=== PATIENT | male | born 1975 | race Caucasian/White ===

== ENCOUNTER → 2016-08-06 | Outpatient (CLI) | payer OTHER ==
[~2016-08-06] MED LIST: ACET-1256 PO; BENZ100C84 PO; BUPR100T8 PO; CPR500 PO; CYM60 PO; DULO60CA44 PO; ERGO500011 PO; FLX/5 PO; GABA-1218 PO; GABA1CAP4 PO; IBUP-1050 PO; LEVO-366 PO; LEVO1TAB33 PO; LEVO50TA6 PO; METH10TA4 PO; METH20TA66 PO; ONDA4TAB46 PO; OXYC-57 PO; RST15 PO; RTL20 PO; TEMA15CA4 PO; VNTHFA/IN INH
[2016-08-06 13:11] LABS: BASO % 0.1 %; BASO ABS # 0.01 K/uL (0-0.2); COMPLETE YES; EOS % 2.4 %; HEMATOCRIT 39.3 % (42-52); IG% 0.1 %; LYMPH % 18.1 %; LYMPH ABS # 1.43 K/uL (1.2-3.4); MEAN CELL VOLUME 76.6 fL (80-100); MEAN CORPUSCULAR HEMOGLOBIN 25.3 pg (25-34); MEAN CORPUSCULAR HGB CONC 33.1 g/dl (32-36); MEAN PLATELET VOLUME 9.4 fL (7.4-10.4); MONO % 5.1 %; NEUT % 74.2 %; PLATELET COUNT 274 K/uL (130-400); RED BLOOD COUNT 5.13 M/uL (4.7-6.1); WHITE BLOOD COUNT 7.88 K/uL (4.8-10.8)
== END | disposition home or self-care (01) ==
LOC: C.LAB1850 11:29
PROVIDERS: ATTEND Internal Medicine
DX: D64.9 Anemia, unspecified (principal); E55.9 Vitamin D deficiency, unspecified

== ENCOUNTER 2016-08-31 15:09 | Emergency (ER) | payer OTHER ==
[~2016-08-31 15:09] MED LIST changes: -ACET-1256 PO; -BENZ100C84 PO; -BUPR100T8 PO; -CYM60 PO; -ERGO500011 PO; -FLX/5 PO; -GABA-1218 PO; -GABA1CAP4 PO; +GABA300C19 PO; -LEVO-366 PO; -LEVO1TAB33 PO; -LEVO50TA6 PO; -METH20TA66 PO; -TEMA15CA4 PO; -VNTHFA/IN INH
[2016-08-31 15:27] VITALS: TEMP 37.1; Ht 190.5 cm
[2016-08-31] MEDS ORDERED: KETOROLAC TROMETHAMINE 30 MG/ML VIAL IV STA (16:40)
[2016-08-31] MEDS ORDERED: ACETAMINOPHEN 500 MG TAB PO STA (16:40)
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
[2016-08-31] MEDS ORDERED: OPTIRAY 320 IV PRN (16:45)
[2016-08-31 17:26] LABS: BASO % 0.1 %; BASO ABS # 0.01 K/uL (0-0.2); COMPLETE YES; EOS % 2.1 %; HEMATOCRIT 35.1 % (42-52); IG% 0.2 %; LYMPH % 19.9 %; LYMPH ABS # 1.76 K/uL (1.2-3.4); MEAN CORPUSCULAR HEMOGLOBIN 25.3 pg (25-34); MEAN CORPUSCULAR HGB CONC 33.3 g/dl (32-36); MONO % 6.4 %; NEUT % 71.3 %; PLATELET COUNT 203 K/uL (130-400); RED BLOOD COUNT 4.62 M/uL (4.7-6.1); WHITE BLOOD COUNT 8.84 K/uL (4.8-10.8)
--- NOTE | 2016-08-31 17:33 | DIAGNOSTIC IMAGING REPORT ---
CHEST ONE VIEW PORTABLE HISTORY: Pleuritic chest pain. COMPARISON: Chest 03/22/2016. FINDINGS: The heart remains mildly enlarged. No new focal lung consolidations to suggest pneumonia. No pleural effusions. No pneumothorax. Mild perihilar interstitial thickening. This could be technical due to the patient's body habitus. However, this remains unchanged. IMPRESSION: No significant change compared to the prior study. No acute process. Mild perihilar interstitial thickening is likely technical. Stable cardiomegaly. Electronically signed by: Raimundo Anton M.D. 08/31/2016 5:32 PM Dictated Date/Time: 08/31/2016 5:31 PM
[2016-08-31 17:35] LABS: PROTHROMBIN TIME (PATIENT) 10.7 SECONDS (9.0-12.0)
[2016-08-31 17:41] LABS: URINE APPEARANCE CLEAR (CLEAR); URINE BILIRUBIN NEG (NEG); URINE COLOR DK YELLOW; URINE NITRITE NEG (NEG); UROBILINOGEN NEG (NEG)
[2016-08-31 17:42] LABS: BLOOD UREA NITROGEN 14 mg/dl (7-18); GLUCOSE 110 mg/dl (70-99)
[2016-08-31 17:43] LABS: ALT/SGPT 21 U/L (12-78); BUN/CREATININE RATIO 11.5 (10-20); CALCIUM 8.5 mg/dl (8.5-10.1); CARBON DIOXIDE 27 mmol/L (21-32); CHLORIDE 103 mmol/L (98-107); POTASSIUM 3.4 mmol/L (3.5-5.1); SODIUM 140 mmol/L (136-145)
[2016-08-31 17:47] LABS: ALKALINE PHOSPHATASE 87 U/L (45-117); AST/SGOT 23 U/L (15-37)
[2016-08-31 17:57] LABS: MANUAL MICROSCOPIC REQUIRED? NO; REVIEW REQ? NO
--- NOTE | 2016-08-31 19:05 | DIAGNOSTIC IMAGING REPORT ---
BILATERAL LOWER EXTREMITY VENOUS DOPPLER HISTORY: Pleuritic chest pain. Shortness of breath. Assess for DVT. COMPARISON STUDY: Venous Doppler 06/10/2011. FINDINGS: There is normal compressibility, flow, and augmentation within the bilateral lower extremity deep venous systems. IMPRESSION: No DVT within the right or left lower extremity. Electronically signed by: Raimundo Anton M.D. 08/31/2016 7:03 PM Dictated Date/Time: 08/31/2016 7:03 PM
[2016-08-31 19:56] VITALS: BP 97/59; PULSE 93; O2SAT 97
--- NOTE | 2016-08-31 20:14 | DIAGNOSTIC IMAGING REPORT ---
CHEST CTA for PULMONARY ARTERIES CT DOSE: 945.46 mGy.cm HISTORY: Atypical chest pain. Short of breath. TECHNIQUE: Multiaxial CT images of the chest were performed following the intravenous administration of contrast to evaluate the pulmonary arteries. Maximal intensity projection images were also obtained. COMPARISON STUDY: Chest CTA 06/07/2015. FINDINGS: Normal caliber thoracic aorta with no evidence for dissection. The heart is normal in size. No pleural or pericardial effusions. The segmental and subsegmental pulmonary arteries are nondiagnostic due to suboptimal opacification and artifact from the patient's large body habitus. However, the main and lobar pulmonary arteries show no filling defects to suggest pulmonary embolus. Hepatic steatosis. The visualized spleen is unremarkable. No mediastinal or hilar lymphadenopathy. No fractures within the visualized osseous structures. The central airways are patent. No pneumothorax. Stable benign 3 mm nodule within the left upper lobe on image 81. No focal lung consolidations to suggest pneumonia. Stable 2 mm punctate nodule/calcified granuloma within the right lung apex on image 106. IMPRESSION: No evidence for central pulmonary embolus. Electronically signed by: Raimundo Anton M.D. 08/31/2016 8:12 PM Dictated Date/Time: 08/31/2016 8:06 PM
[2017-02-06] MEDS ORDERED: FLX/5 PO (17:10)
[2017-02-06] MEDS ORDERED: GABA1CAP4 PO (17:10)
[2017-02-06] MEDS ORDERED: CYM60 PO (17:10)
[2017-02-06] MEDS ORDERED: TEMA15CA4 PO (17:10)
[2017-02-06] MEDS ORDERED: METH20TA66 PO (17:10)
== END 2016-08-31 20:28 | disposition home or self-care (01) ==
LOC: C.EDB 15:10 → C.EDC 20:28
DX: R07.2 Precordial pain (principal); G62.9 Polyneuropathy, unspecified; G47.30 Sleep apnea, unspecified; Z87.81 Personal history of (healed) traumatic fracture; Z87.828 Personal history of other (healed) physical injury and trauma; Z86.19 Personal history of other infectious and parasitic diseases; Z87.442 Personal history of urinary calculi; Z98.890 Other specified postprocedural states; Z87.891 Personal history of nicotine dependence; Z79.899 Other long term (current) drug therapy; Z83.3 Family history of diabetes mellitus; Z80.9 Family history of malignant neoplasm, unspecified; Z83.79 Family history of other diseases of the digestive system; Z82.49 Family history of ischemic heart disease and other diseases of the circulatory system; Z84.1 Family history of disorders of kidney and ureter

== ENCOUNTER → 2016-09-28 | Outpatient (CLI) | payer OTHER ==
[~2016-09-28] MED LIST changes: +ACET-1256 PO; -CPR500 PO; +CYM60 PO; -DULO60CA44 PO; +ERGO1CAP41 PO; +FLX/5 PO; +GABA1CAP4 PO; -GABA300C19 PO; -IBUP-1050 PO; +LEVO50TA6 PO; -METH10TA4 PO; +METH20TA66 PO; -ONDA4TAB46 PO; -OXYC-57 PO; -RST15 PO; -RTL20 PO; +TEMA15CA4 PO
[2016-09-28 17:28] LABS: THYROID STIMULATING HORMONE 3.6 uIu/ml (0.300-4.500)
== END | disposition home or self-care (01) ==
LOC: C.RC 16:09
PROVIDERS: ATTEND Internal Medicine Pulmonary Disease
DX: G47.33 Obstructive sleep apnea (adult) (pediatric) (principal); E66.01 Morbid (severe) obesity due to excess calories

== ENCOUNTER → 2016-10-02 | Outpatient (CLI) | payer OTHER ==
--- NOTE | 2016-10-03 06:46 | SPLIT NIGHT TECHNICIAN REPORT ---
[facility] Split Night Polysomnogram - Nodulizer Report Study date: 10/02/2016 Referring Physician: Dr. Neves Name: TONJA GUNTER I Nodulizer: DANIELA Candelaria. Date of : 1975 Height: 41 years, Height 6' 4" Sex: Male Weight: 475 lbs Age: 41 Neck Circum: 23 inches BMI: Medications: 57.81 RITALIN 20 MG, CYCLOBENZAPRINE HCL 5 MG, GABAPENTIN 300 MG, TEMAZEPAM 15 MG, IBUPROFEN 600 MG, OXYCODONE-ACETAMINOPHEN 5/325 MG, DULOXETINE HCL 60 MG, VITAMIN D Patient History PATIENT HAD A SLEEP STUDY DONE IN 2014 AND WAS POSITIVE FOR JHONATAN WITH AN AHI OF 26.5/HR. HE WAS NOT SETUP WIT CPAP BUT HAS BEEN USING SUPPLEMNTAL OXYGEN. HE IS HERE TODAY FOR AN EVALUATION OF JHONATAN. ESS = 16 RM 4 Parameters Monitored NPSG: E1-M2, E2-M1, Fp1-M2, Fp2-M1, F3-M2, F4-M2, F4-M1, C3-M2, C4-M2, C4-M1, O1-M2, O2-M2, O2-M1, T3-M2, T4-M1, P3-M2, P4-M1, CHIN1, CHIN2, HR, EKG, Legs, PFLOW, SNOR, FLOW, CFLOW, Tidal Volume, THOR, ABDO, SpO2, PLTH, CPRESS, ETCO2 Wave, ETCO2, pH SLEEP SUMMARY DATA DIAGNOSTIC TREATMENT Lights Out: 10:01:08 PM 1:22:38 AM Lights On: 1:12:38 AM 5:37:38 AM Total Recording Time (TRT): 192.0 min. 255.5 min. Total Sleep Time (TST): 186.0 min. 215.0 min. NREM Time: 162.5 min. 105.0 min. REM Time: 23.5 min. 110.0 min. Sleep Period Time (SPT): 186.5 min. 254.0 min. Sleep Efficiency (SE): 97 % 84 % Sleep Latency: 5.0 min. 1.0 min. Arousal Index: 9.4 5.0 PAP Treatment Levels: 4, 5, 6, 7, 9, 11, 12, 13, 14, 15, 15/11, 16/12, 17/12 * Optimal Pressure(s) SLEEP STAGING DATA DIAGNOSTIC TREATMENT Duration (min) TST % Duration (min) TST % Stage Wake: 5.5 min. -- 40.5 min. -- WASO: 0.5 min. -- 39.0 min. -- NREM: 162.5 min. 87 % 105.0 min. 49 % Stage N1: 6.0 min. 3 % 9.0 min. 4 % Stage N2: 50.5 min. 27 % 53.5 min. 25 % Stage N3: 106.0 min. 57 % 42.5 min. 20 % REM: 23.5 min. 13 % 110.0 min. 51 % POSITIONAL DATA Event Count Index Event Count Index Supine: 71 22.9 103 28.7 Supine NREM: 30 11.1 37 21.1 Supine REM: 41 105 66 36 Non-Supine: N/A N/A N/A N/A Non-Supine NREM: N/A N/A N/A N/A Non-Supine REM: N/A N/A N/A N/A AROUSAL SUMMARY DATA: Event Count Index Event Count Index Apnea Arousals: 7 4.8 8 8.7 Hypopnea Arousals: 13 4.2 2 0.6 Snore Arousals: 4 1.3 4 1.1 PLM Arousals: 0 0.0 0 0.0 Non-Specific Arousals: 4 1.3 3 0.8 Total Arousals: 29 9.4 18 5.0 MYOCLONUS (PLM) Event Count Index Event Count Index PLM: 0 0.0 161 44.9 PLM AROUSAL: 0 0.0 0 0.0 PLM W/O AROUSAL 0 0.0 161 44.9 PLM W/RESP EVENT 0 0.0 3 0.0 MYOCLONUS (PLM) Event Count Index Event Count Index LM: 2 14.8 29 8.1 LM AROUSAL: 2 0.6 0 0.0 LM W/O AROUSAL LM W/RESP EVENT LM NON SPECIFIC 23 7.4 182 50.8 HEART RATE DATA DIAGNOSTIC TREATMENT Sleep (bpm): 91 82 REM (bpm): 83 91 NREM (bpm): 91 93 Tachycardia Count: 0 0 Tachycardia Duration: 0.00 0 Bradycardia Count: 0 0 Bradycardia Duration: 0.00 0 DIAGNOSTIC PORTION TREATMENT PORTION RESPIRATORY DATA Event Count Index Event Count Index AHI: -- 22.9 -- 28.7 RDI: -- 22.9 -- 29 Obstructive Apnea: 14 4.5 10 2.8 Central Apnea: 0 0.0 21 5.9 Mixed Apnea: 1 0.3 0 0.0 Hypopnea: 56 18.1 72 20.1 RERA: 1 0.3 0 0.0 Total Apneas: 15 4.8 31 8.7 RESPIRATORY DATA REM NREM SLEEP REM NREM SLEEP Supine Position: Obstructive Apneas: 14 0 14 8 2 10 Central Apneas: 0 0 0 5 16 21 Mixed Apneas: 1 0 1 0 0 0 Hypopneas: 26 30 56 53 19 72 RERA 0 1 1 0 0 0 Total Supine Events: 41 30 71 66 37 103 Supine AHI: 105 11.1 22.9 36 21.1 28.7 Supine RDI: 104.7 11.1 22.9 36.0 21.1 28.7 REM NREM SLEEP REM NREM SLEEP Non-Supine Position: Obstructive Apneas: N/A N/A N/A N/A N/A N/A Central Apneas: N/A N/A N/A N/A N/A N/A Mixed Apneas: N/A N/A N/A N/A N/A N/A Hypopneas: N/A N/A N/A N/A N/A N/A RERA N/A N/A N/A N/A N/A N/A Total Supine Events: N/A N/A N/A N/A N/A N/A Supine AHI: N/A N/A N/A N/A N/A N/A Supine RDI: N/A N/A N/A N/A N/A N/A OXYGEN DESTAURATION DATA: Event Count Index Event Count Index REM Desaturations: 43 109.8 75 40.9 NREM Desaturations: 34 12.6 43 24.6 SNORE DATA DIAGNOSTIC TREATMENT Snore Time: 31.8 1:23:38 AM Snore TST%: 9 3 Snore Arousal Count: 4 4 Snore Arousal Index: 1.3 1.1 Desaturation Event Summary: Minimum %SpO2 Event Count Mean/Min/Max Duration(sec.) Desaturation Index % Time In Bed > 90 177 26.7 / 6.8 / 69.1 31.8 76.2 86 - 90 35 20.4 / 6.0 / 46.8 30.4 15.8 81 - 85 36 12.8 / 5.3 / 27.3 112.5 4.4 76 - 80 12 15.4 / 7.3 / 26.8 73.0 2.3 71 - 75 3 12.3 / 10.5 / 14.0 40.5 1.0 66 - 70 0 N/A 0.0 0.4 61 - 65 0 N/A 0.0 0.0 56 - 60 0 N/A 0.0 0.0 51 - 55 0 N/A 0.0 0.0 < 50 0 N/A 0.0 0.0 OXYGEN SATURATION DATA DIAGNOSTIC TREATMENT SpO2 Mean Sleep: 90 % 92 % SpO2 Mean REM: 83 % 91 % SpO2 Mean NREM: 91 % 93 % SpO2 Minimum Sleep: 62 % 70 % SpO2 Minimum REM: 62 % 70 % SpO2 Minimum NREM: 73 % 76 % Time Below 90% (TST): 37.1 32.8 Time Below 88% (TST): 22.5 23.6 Total REM NREM Awake <50% 0.0 min. 0.0 min. 0.0 min. 0.0 min. 51 - 60% 0.0 min. 0.0 min. 0.0 min. 0.0 min. 61 - 70% 1.8 min. 1.8 min. 0.0 min. 0.0 min. 71 - 80% 14.3 min. 12.2 min. 1.5 min. 0.6 min. 81 - 90% 88.4 min. 35.2 min. 46.7 min. 6.4 min. 91 - 100% 333.7 min. 84.3 min. 219.2 min. 30.2 min. Average 91 90 92 94 Minimum SpO2 62 62 73 77 Desaturation Event Index 31.3 53.0 17.3 50.1 # Desat. Events below 89% 182 103 58 21 Time(%) with Saturation below 89% 13.6 8.8 3.9 1.0 Time(min.) with Saturation below 89% 59.8 38.4 17.0 4.4 Recording Nodulizer Comments: Mr. Gunter slept in the supine positions. Increased heart rate noted at times. Leg movements noted. No bruxism noted. Snoring was noted and scored as a 3 on a scale of 1 through 5. (0=no snoring, 5=snoring loud enough to be heard through a closed door or down the [address] way) At 1:12 am Mr. Gunter has met specific Split-Night criteria during the diagnostic portion of this study. CPAP was initiated at +4 CMH2O and up-titrated to a level of +15 CMH2O. At this time, I switched to BIPAP due to some central apneas noted and high mask pressure. BIPAP was started at 15/11 and up-titrated to 17/12 due to apneas and hypopneas. A Resmed Mirage Quattro full face size medium mask was used during titration Mr. Gunter awoke to use the restroom 1 time during the night. Mr. Gunter stated I slept as well as I do when I am in my own bed. I tried to have the mask tight enough so that it wouldn't cause problems later in the study but the patient wouldn't allow me to have as tight as I wanted it. The mask did come loose while the patient was in REM sleep at a critical time in the study. This may have caused the respiratory events due to mask leak. I did switch to BIPAP due to high mask leak and high pressure to try and relieve the respiratory events. The patient was unable to get back into a deeper sleep after the restroom break. The final report will be interpreted and signed by a sleep physician. The completed physician report will then be placed in the patient medical record. Therapy Event: Therapy (cm H20) 0 4 5 6 7 9 11 Total Time at Pressure (min.) 191.5 4.5 6.0 9.8 4.5 7.4 7.7 TST at Pressure (min.) 186.0 3.5 6.0 9.8 4.5 7.4 7.7 # Periods 1 1 1 1 1 1 1 Sleep Onset (min.) 5.0 1.0 0.0 0.0 0.0 0.0 0.0 REM Onset (min.) 83.5 N/A N/A 5.5 0.0 0.0 0.0 Sleep Efficiency % 97 78 100 100 100 100 100 Wakefulness (%) 2.9 22.0 0.0 0.0 0.0 0.0 0.0 Wakefulness (min.) 5.5 1.0 0.0 0.0 0.0 0.0 0.0 NREM 1 (%) 3.1 33.0 0.0 0.0 0.0 0.0 0.0 NREM 1 (min.) 6.0 1.5 0.0 0.0 0.0 0.0 0.0 NREM 2 (%) 26.4 45.0 100.0 55.8 0.0 0.0 0.0 NREM 2 (min.) 50.5 2.0 6.0 5.5 0.0 0.0 0.0 NREM 3 (%) 55.4 0.0 0.0 0.0 0.0 0.0 0.0 NREM 3 (min.) 106.0 0.0 0.0 0.0 0.0 0.0 0.0 REM (%) 12.3 0.0 0.0 44.2 100.0 100.0 100.0 REM (min.) 23.5 0.0 0.0 4.3 4.5 7.4 7.7 # Arousals 29 2 0 2 2 0 1 Arousal Index 9.4 33.9 0.0 12.2 26.9 0.0 7.8 # Snore 1,335 7 41 49 19 18 28 Snore Index 430.6 118.5 411.5 299.6 255.8 146.2 218.9 AHI 22.9 101.6 50.2 85.6 67.3 81.2 39.1 AHI Supine 22.9 101.6 50.2 85.6 67.3 81.2 39.1 AHI Non-Supine N/A N/A N/A N/A N/A N/A N/A NREM AHI 11.1 101.6 50.2 76.7 N/A N/A N/A REM AHI 104.7 N/A N/A 96.9 67.3 81.2 39.1 RDI 22.9 101.6 50.2 85.6 67.3 81.2 39.1 # Obstructive 14 0 0 4 1 0 0 # Central Ap 0 5 1 0 0 0 0 # Mixed 1 0 0 0 0 0 0 # Hypopneas 56 1 4 10 4 10 5 RERAS 1 0 0 0 0 0 0 Total Respiratory Events 71 6 5 14 5 10 5 Time Below SpO2 89.00% (min.) 27.3 0.8 0.6 4.6 3.5 7.3 3.5 Mean NREM SpO2 (%) 91 92 92 90 N/A N/A N/A Mean REM SpO2 (%) 83 N/A N/A 85 83 81 89 Mean Sleep SpO2 (%) 90 92 92 88 83 81 89 Min NREM SpO2 (%) 73 80 79 76 N/A N/A N/A Min REM SpO2 (%) 62 N/A N/A 73 70 73 81 Position Supine (min.) 186.0 3.5 6.0 9.8 4.5 7.4 7.7 Position Non-supine (min.) 0.0 0.0 0.0 0.0 0.0 0.0 0.0 LM Index Sleep 14.8 0.0 0.0 6.1 13.5 16.2 23.4 LM Index NREM 8.5 0.0 0.0 11.0 N/A N/A N/A LM Index REM 58.7 N/A N/A 0.0 13.5 16.2 23.4 Mean Heart Rate (bpm) 91 84 84 85 85 90 89 Min Heart Rate (bpm) 62 76 76 69 66 81 78 Therapy (cm H20) 12 13 14 15 15/11 16/12 17/12 Total Time at Pressure (min.) 18.2 35.8 89.3 6.3 7.0 5.8 52.8 TST at Pressure (min.) 18.2 35.8 89.3 6.3 7.0 5.8 13.8 # Periods 1 1 1 1 1 1 1 Sleep Onset (min.) 0.0 0.0 0.0 0.0 0.0 0.0 0.0 REM Onset (min.) 0.0 0.0 0.0 0.0 0.0 0.0 0.0 Sleep Efficiency % 100 100 100 100 100 100 26 Wakefulness (%) 0.0 0.0 0.0 0.0 0.0 0.0 73.9 Wakefulness (min.) 0.0 0.0 0.0 0.0 0.0 0.0 39.0 NREM 1 (%) 0.0 0.0 0.0 8.0 0.0 0.0 13.3 NREM 1 (min.) 0.0 0.0 0.0 0.5 0.0 0.0 7.0 NREM 2 (%) 0.0 0.0 44.8 0.0 0.0 0.0 0.0 NREM 2 (min.) 0.0 0.0 40.0 0.0 0.0 0.0 0.0 NREM 3 (%) 0.0 0.0 47.6 0.0 0.0 0.0 0.0 NREM 3 (min.) 0.0 0.0 42.5 0.0 0.0 0.0 0.0 REM (%) 100.0 100.0 7.6 92.0 100.0 100.0 12.8 REM (min.) 18.2 35.8 6.8 5.8 7.0 5.8 6.8 # Arousals 0 0 3 1 0 0 7 Arousal Index 0.0 0.0 2.0 9.6 0.0 0.0 30.5 # Snore 3 14 6 1 2 0 6 Snore Index 9.9 23.5 4.0 9.6 17.1 0.0 26.1 AHI 19.8 15.1 10.8 67.0 34.1 51.3 47.9 AHI Supine 19.8 15.1 10.8 67.0 34.1 51.3 47.9 AHI Non-Supine N/A N/A N/A N/A N/A N/A N/A NREM AHI N/A N/A 8.7 120.0 N/A N/A 51.4 REM AHI 19.8 15.1 35.4 62.4 34.1 51.3 44.3 RDI 19.8 15.1 10.8 67.0 34.1 51.3 47.9 # Obstructive 0 1 2 2 0 0 0 # Central Ap 0 2 7 2 0 0 4 # Mixed 0 0 0 0 0 0 0 # Hypopneas 6 6 7 3 4 5 7 RERAS 0 0 0 0 0 0 0 Total Respiratory Events 6 9 16 7 4 5 11 Time Below SpO2 89.00% (min.) 0.3 1.2 3.0 0.7 0.8 0.6 1.2 Mean NREM SpO2 (%) N/A N/A 93 88 N/A N/A 93 Mean REM SpO2 (%) 92 94 93 94 93 93 94 Mean Sleep SpO2 (%) 92 94 93 94 93 93 93 Min NREM SpO2 (%) N/A N/A 78 83 N/A N/A 83 Min REM SpO2 (%) 86 80 83 86 81 85 84 Position Supine (min.) 18.2 35.8 89.3 6.3 7.0 5.8 13.8 Position Non-supine (min.) 0.0 0.0 0.0 0.0 0.0 0.0 0.0 LM Index Sleep 6.6 13.4 112.2 9.6 17.1 20.5 4.4 LM Index NREM N/A N/A 121.5 0.0 N/A N/A 8.6 LM Index REM 6.6 13.4 0.0 10.4 17.1 20.5 0.0 Mean Heart Rate (bpm) 86 84 80 79 79 78 77 Min Heart Rate (bpm) 77 74 65 72 69 67 63
--- NOTE | 2016-10-07 13:33 | POLYSOMNOGRAPH REPORT ---
Sleep study report CLINICAL DATA: The patient is a 41-year-old male. He has a BMI which is severely elevated at 57.81. He was referred by Dr. Nilson Patricia. A split night study was performed. His history is that of snoring, observed apneas, disturbed nocturnal sleep, and excessive daytime somnolence. The patient had an Rio sleepiness scale score of 16 out of a possible 24. SLEEP ARCHITECTURE: During the diagnostic portion of the study, the patient had a total sleep period time of 186.5 minutes with a total sleep time of 186.0 minutes. Sleep efficiency was high at 97%. The sleep latency was 5 minutes. Sleep consisted of stage N1 3%, stage N2 27%, stage N3 57%, and stage, REM 13%. During the therapeutic portion of the study when the patient was treated with nasal CPAP and BiPAP, his sleep period time was 254.0 minutes. Total sleep time was 215 minutes. Sleep efficiency was 84%. The sleep latency was 1 minute. Sleep consisted of stage N1 4%, stage N2 25%, stage N3 20%, and stage REM 51%. AROUSAL DATA: During the diagnostic portion of the study, the patient had a total of 29 arousals including 7 apnea arousals, 13 hypopnea arousals, 4 snoring arousals, and 4 nonspecific arousals. The arousal index was 9.4 events per hour. During the therapeutic portion of the study, the patient had a total of 18 arousals including 8 apnea arousals, 2 hypopneas arousals, 4 snoring arousals, and 3 nonspecific arousals. The arousal index was 5.0. PLM DATA: During the diagnostic portion of the study, the patient had no periodic limb movements. During the therapeutic portion of the study, there were 161 periodic limb movements for a PLM index of 44.9 events per hour. There were no arousals associated with the limb movements. EKG: The underlying cardiac rhythm was normal sinus. The cardiac rates averaged 91 during the diagnostic portion of the study and 82 during the treatment portion. It was noted during the diagnostic portion that during REM sleep, he was having some variability in heart rates with some slowing of the heart rates during the events. There were no long pauses; however. RESPIRATORY DATA: During the diagnostic portion of the study, the patient had a total of 41 respiratory events including 14 obstructive apneas, 1 mixed apnea and 56 hypopneas. The apnea-hypopnea index was moderately elevated at 22.9 events per hour. Hypopneas were scored by the 4% rule. During the therapeutic portion of the study, the patient had a total of 10 obstructive apneas, 21 central apneas, 72 hypopneas, and an overall apnea-hypopnea index of 28.7 events per hour. OXIMETRY DATA: During the diagnostic portion of the study, the mean saturation was 90% with the lowest saturation of 62%. There were 22.5 minutes less than 88%. During the therapeutic portion of the study, the mean saturation was 92%. The minimum saturation was 70%. There was 23.6 minutes with saturations less than 88%. CODING TECHNICIAN'S COMMENT AND TREATMENT SUMMARY: The patient slept in the supine position. Leg movements were noted. No bruxism was noted. Snoring was noted and scored as a 3 on a scale of 1 through 5. The patient met specific split night criteria during the diagnostic portion of the study. CPAP was initiated at 4 cm and up titrated to a level of 15 cm. He was then switched to BiPAP due to having central apneas. He also was having high mask pressure. BiPAP was started at 15/11 and titrated up to 17/12. The patient persisted with events. The mass did come loose while the patient was in REM sleep and this may have caused respiratory events due to mask leak. The patient had a restroom break and was unable to get back into deeper sleep after the restroom break. IMPRESSION: 1. Obstructive sleep apnea - moderate. COMMENTS: The patient had moderate sleep apnea during the diagnostic portion of the study. During the therapeutic portion of the study, CPAP was initiated. His pressure was taken up to a high of 15 cm on CPAP. He was then switched to BiPAP because he was having some central apneas. He did not do well with BiPAP. He had relatively little sleep and the events seemed to worsen. His best CPAP pressure appeared to be 14 cm where he had an apnea-hypopnea index of 10.8. The patient did have marked REM rebound during the therapeutic portion of the study. He developed periodic limb movements during the therapeutic portion of the study. This is not unusual with the resolution of sleep-disordered breathing. The patient does take a number of medications which could affect both sleep and alertness including Ritalin, cyclobenzaprine, gabapentin, temazepam, oxycodone, and duloxetine. RECOMMENDATIONS: 1. In light of the difficult titration noted above, it is advised that the patient be started on auto CPAP with a minimum pressure of 8 and a maximum pressure of 20. 2. It is advised that he be ordered a ResMed Mirage Quattro full facemask, size medium. 3. The patient has a severe elevation of body mass index of 57.81. A weight reduction program is advised. 4. The patient spent the entire night in the supine position. If possible, it is advised that he avoid sleeping in the supine position. 5. The patient should be seen in followup between day 31 and day 90 after CPAP is started. GRISELDA
== END | disposition home or self-care (01) ==
LOC: C.NEUR 21:00
PROVIDERS: ATTEND Internal Medicine Pulmonary Disease
DX: G47.33 Obstructive sleep apnea (adult) (pediatric) (principal)

== ENCOUNTER → 2017-01-24 | Outpatient (CLI) | payer OTHER ==
[~2017-01-24] MED LIST changes: +BENZ100C84 PO; +BUPR100T8 PO; -ERGO1CAP41 PO; +ERGO500011 PO; +LEVO-366 PO; +LEVO1TAB33 PO; +VNTHFA/IN INH
[2017-01-24 11:41] LABS: BASO % 0.3 %; BASO ABS # 0.02 K/uL (0-0.2); COMPLETE YES; EOS % 3.4 %; HEMATOCRIT 39.6 % (42-52); IG% 0.2 %; LYMPH % 20.6 %; LYMPH ABS # 1.35 K/uL (1.2-3.4); MEAN CELL VOLUME 77.3 fL (80-100); MEAN CORPUSCULAR HEMOGLOBIN 25.6 pg (25-34); MEAN CORPUSCULAR HGB CONC 33.1 g/dl (32-36); MONO % 7.3 %; NEUT % 68.2 %; PLATELET COUNT 228 K/uL (130-400); RED BLOOD COUNT 5.12 M/uL (4.7-6.1); WHITE BLOOD COUNT 6.54 K/uL (4.8-10.8)
[2017-01-24 12:18] LABS: ALT/SGPT 27 U/L (12-78); BLOOD UREA NITROGEN 13 mg/dl (7-18); BUN/CREATININE RATIO 12.2 (10-20); CALCIUM 9.2 mg/dl (8.5-10.1); CARBON DIOXIDE 29 mmol/L (21-32); CHLORIDE 103 mmol/L (98-107); GLUCOSE 92 mg/dl (70-99); POTASSIUM 4.2 mmol/L (3.5-5.1); SODIUM 139 mmol/L (136-145)
[2017-01-24 12:27] LABS: ALB/GLOB RATIO 0.8 (0.9-2); ALKALINE PHOSPHATASE 89 U/L (45-117); AST/SGOT 18 U/L (15-37); FERRITIN 70.5 ng/ml (8.0-388.0)
== END | disposition home or self-care (01) ==
LOC: C.LAB1850 10:35
PROVIDERS: ATTEND Internal Medicine
DX: E55.9 Vitamin D deficiency, unspecified (principal); D64.9 Anemia, unspecified; N23 Unspecified renal colic; E03.9 Hypothyroidism, unspecified

== ENCOUNTER 2017-02-06 19:25 | Emergency (ER) | payer OTHER ==
[~2017-02-06] VITALS: Ht 193 cm; Wt 213.0 kg
[~2017-02-06 19:25] MED LIST changes: -ACET-1256 PO; -BENZ100C84 PO; -BUPR100T8 PO; -ERGO500011 PO; -LEVO-366 PO; -LEVO1TAB33 PO; -LEVO50TA6 PO; -VNTHFA/IN INH
[2017-02-06 19:27] VITALS: TEMP 37; Ht 193 cm; Wt 213.0 kg
[2017-02-06] MEDS ORDERED: LEVO50TA6 PO (19:39)
[2017-02-06] MEDS ORDERED: ERGO1CAP41 PO (19:39)
[2017-02-06] MEDS ORDERED: ACET-1256 PO (19:43)
[2017-02-06] MEDS ORDERED: IBUPROFEN 800 MG TAB PO STA (20:19)
--- NOTE | 2017-02-06 20:59 | DIAGNOSTIC IMAGING REPORT ---
RIGHT ANKLE MIN 3 VIEWS ROUTINE CLINICAL HISTORY: Ankle injury. COMPARISON: CT of the right ankle November 07, 2015. FINDINGS: There are post surgical findings consistent with a tibiotalar and subtalar joint effusion. Interval post surgical findings since exam of November 07, 2015 are noted. Several old screw fragments are present. There are soft tissue swelling. Sensitivity for detection of fractures is diminished on this exam but none are identified. Tibiotalar and subtalar joint fusion is incomplete. A metallic density projecting of the syndesmosis is unchanged. IMPRESSION: 1. Status post interval right tibiotalar and subtalar joint fusion. Fusion incomplete. 2. Old distal right tibial and fibular fractures. No acute fracture identified. 3. Diffuse soft tissue swelling. 4. Several old screw fragments from previous internal fixation. 5. Interval development of cortical irregularity and lucency within the distal shaft of the right fibula, a nonspecific finding. Electronically signed by: Toni Breen M.D. 02/06/2017 8:57 PM Dictated Date/Time: 02/06/2017 8:52 PM
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
[2017-02-06 23:03] VITALS: BP 141/86; PULSE 90; O2SAT 98
== END 2017-02-06 23:10 | disposition home or self-care (01) ==
LOC: C.EDB 19:26 → C.EDD 23:10
DX: S99.911A Unspecified injury of right ankle, initial encounter (principal); W22.8XXA Striking against or struck by other objects, initial encounter; G47.30 Sleep apnea, unspecified; Z79.899 Other long term (current) drug therapy

== ENCOUNTER 2017-02-10 12:25 | Emergency (ER) | payer OTHER ==
[~2017-02-10] VITALS: Ht 193 cm; Wt 215.0 kg
[~2017-02-10 12:25] MED LIST changes: +ACET-1256 PO; +ERGO1CAP41 PO; +LEVO50TA6 PO
[2017-02-10 12:27] VITALS: TEMP 36.8; Ht 193 cm; Wt 215.0 kg
[2017-02-10] MEDS ORDERED: SODIUM CHLORIDE 0.9% 1000ML 1,000 ML IV STA (13:23)
[2017-02-10] MEDS ORDERED: ONDANSETRON INJ 2 MG/ML 2 ML VIAL IV STA (13:23)
[2017-02-10] MEDS ORDERED: FENTANYL CITRATE INJ 50 MCG/1 ML 2 ML VIAL IV STA (13:23)
[2017-02-10] MEDS ORDERED: KETOROLAC TROMETHAMINE 30 MG/ML VIAL IV STA (13:23)
[2017-02-10 13:29] LABS: BASO % 0.5 %; BASO ABS # 0.03 K/uL (0-0.2); COMPLETE YES; EOS % 3.3 %; HEMATOCRIT 38.6 % (42-52); IG% 0.2 %; LYMPH % 26.9 %; LYMPH ABS # 1.57 K/uL (1.2-3.4); MEAN CELL VOLUME 76.7 fL (80-100); MEAN CORPUSCULAR HEMOGLOBIN 25.8 pg (25-34); MEAN CORPUSCULAR HGB CONC 33.7 g/dl (32-36); MEAN PLATELET VOLUME 9.2 fL (7.4-10.4); MONO % 8.9 %; NEUT % 60.2 %; PLATELET COUNT 223 K/uL (130-400); RED BLOOD COUNT 5.03 M/uL (4.7-6.1); WHITE BLOOD COUNT 5.84 K/uL (4.8-10.8)
[2017-02-10 13:39] LABS: BUN/CREATININE RATIO 10.9 (10-20); CALCIUM 8.8 mg/dl (8.5-10.1); CREATININE 1.1 mg/dl (0.60-1.40)
[2017-02-10 14:13] LABS: URINE APPEARANCE CLEAR (CLEAR); URINE BILIRUBIN NEG (NEG); URINE COLOR YELLOW; URINE EPITHELIAL CELL AUTO >30 /lpf (0-5); URINE NITRITE NEG (NEG); URINE SPECIFIC GRAVITY 1.022 (1.000-1.030); UROBILINOGEN NEG (NEG); ZZUR CULT IF INDIC CLEAN CATCH NO
[2017-02-10 14:14] LABS: MANUAL MICROSCOPIC REQUIRED? NO; REVIEW REQ? NO
--- NOTE | 2017-02-10 14:22 | DIAGNOSTIC IMAGING REPORT ---
CT SCAN OF THE ABDOMEN AND PELVIS WITHOUT IV CONTRAST CLINICAL HISTORY: Bilateral flank pain. COMPARISON STUDY: Abdominal CT dated 03/22/2016. TECHNIQUE: CT scan of the abdomen and pelvis is performed from the lung bases to the proximal femora. Images are reviewed in the axial, sagittal, and coronal planes. IV contrast was not administered for this examination. Automated dose control exposure was utilized. The examination is degraded by large body habitus, and by streak artifact from the body wall abutting the CT gantry. CT DOSE: 2515.33 mGy.cm FINDINGS: Lung bases: The heart is normal in size and without pericardial effusion. The lung bases are clear. There is a tiny hiatal hernia. Liver: The unenhanced liver is enlarged, measuring 21.7 cm in length. The liver demonstrates diffusely imaged attenuation consistent with hepatic steatosis. Fatty sparing is seen adjacent to the gallbladder fossa. There is no intrahepatic biliary ductal dilatation. Gallbladder: Unremarkable. Spleen: The spleen is enlarged measuring 17.1 cm in length. Pancreas: Unremarkable. Adrenal glands: Unremarkable. Kidneys: The unenhanced kidneys are normal in size and without hydronephrosis. There is a 5 mm nonobstructing right renal calculus. A 3 mm nonobstructing calculus is seen on the left. There is no evidence of contour deforming renal mass lesion. Abdominal vasculature: The abdominal aorta is normal in course and caliber. Bowel: The small bowel and colon are normal in course and caliber. The appendix is well-visualized and normal. Peritoneum: There is no intraperitoneal free air or abdominal ascites. There is a small fat-containing umbilical hernia. Lymphadenopathy: None. Pelvic viscera: The bladder is decompressed and grossly unremarkable. The prostate and seminal vesicles are normal as visualized. Skeletal structures: No lytic or blastic lesions are seen. IMPRESSION: 1. There are no acute infectious or inflammatory findings in the abdomen or pelvis. 2. Bilateral nonobstructing renal calculi. 3. Hepatomegaly and severe hepatic steatosis. 4. Splenomegaly. 5. Additional findings as above. Electronically signed by: Jeremy Bright M.D. 02/10/2017 2:20 PM Dictated Date/Time: 02/10/2017 2:16 PM
[2017-02-10 14:30] VITALS: BP 132/65; PULSE 76; O2SAT 97
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
== END 2017-02-10 14:58 | disposition home or self-care (01) ==
LOC: C.EDB 12:25
DX: M54.5 Low back pain (principal); R19.7 Diarrhea, unspecified; Z83.3 Family history of diabetes mellitus; Z82.49 Family history of ischemic heart disease and other diseases of the circulatory system; Z87.891 Personal history of nicotine dependence

== ENCOUNTER 2017-06-25 04:57 | Emergency (ER) | payer OTHER ==
[~2017-06-25] VITALS: Ht 193 cm; Wt 209.0 kg
[~2017-06-25 04:57] MED LIST changes: -ERGO1CAP41 PO; +ERGO500011 PO
[2017-06-25 05:02] VITALS: TEMP 36.8; Ht 193 cm; Wt 209.0 kg
[2017-06-25 05:08] VITALS: O2SAT 97
[2017-06-25] MEDS ORDERED: ALBUT/IPRATROP 3MG/0.5MG NEB 3 ML VIAL INH STA (05:14)
[2017-06-25] MEDS ORDERED: METHYLPREDNISOLONE 125 MG VIAL IV STA (05:14)
[2017-06-25 05:34] LABS: BASO % 0.5 %; BASO ABS # 0.03 K/uL (0-0.2); COMPLETE YES; EOS % 5.8 %; HEMATOCRIT 38.4 % (42-52); IG% 0.2 %; LYMPH ABS # 1.67 K/uL (1.2-3.4); MEAN CELL VOLUME 77.9 fL (80-100); MEAN CORPUSCULAR HEMOGLOBIN 27.2 pg (25-34); MEAN CORPUSCULAR HGB CONC 34.9 g/dl (32-36); MEAN PLATELET VOLUME 8.8 fL (7.4-10.4); MONO % 8.9 %; NEUT % 57.6 %; PLATELET COUNT 211 K/uL (130-400); RED BLOOD COUNT 4.93 M/uL (4.7-6.1); WHITE BLOOD COUNT 6.19 K/uL (4.8-10.8)
[2017-06-25 05:52] LABS: BUN/CREATININE RATIO 11.6 (10-20); CALCIUM 8.6 mg/dl (8.5-10.1); CREATININE 1.19 mg/dl (0.60-1.40); POTASSIUM 3.6 mmol/L (3.5-5.1)
[2017-06-25 05:57] LABS: CKMB/CK RATIO 0.7 (0-3.0)
[2017-06-25] MEDS ORDERED: BUPR100T8 PO (06:04)
[2017-06-25 06:06] VITALS: PULSE 85
[2017-06-25 06:31] VITALS: BP 135/81
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
[2017-06-25] MEDS ORDERED: VNTHFA/IN INH (06:45)
[2017-06-25] MEDS ORDERED: LEVO-366 PO (06:45)
[2017-06-25 06:55] VITALS: O2SAT 93
--- NOTE | 2017-06-25 07:07 | DIAGNOSTIC IMAGING REPORT ---
SINGLE VIEW CHEST CLINICAL HISTORY: Dyspnea. Atypical chest pain. FINDINGS: An AP, portable, upright chest radiograph is compared to chest x-ray and chest CT dated 08/31/2016. The examination is degraded by portable technique, large body habitus, apical lordotic positioning, and patient rotation. The heart is enlarged. The pulmonary vasculature is noncongested. The lungs and pleural spaces are clear. No pneumothorax is seen. The bony thorax is grossly intact. IMPRESSION: Cardiomegaly with no acute cardiopulmonary abnormality. Electronically signed by: Jeremy Bright M.D. 06/25/2017 7:06 AM Dictated Date/Time: 06/25/2017 7:05 AM
== END 2017-06-25 06:55 | disposition home or self-care (01) ==
LOC: C.EDB 04:58
DX: J45.909 Unspecified asthma, uncomplicated (principal); J40 Bronchitis, not specified as acute or chronic; G62.9 Polyneuropathy, unspecified; Z87.440 Personal history of urinary (tract) infections; Z87.442 Personal history of urinary calculi; Z87.81 Personal history of (healed) traumatic fracture; Z87.891 Personal history of nicotine dependence; Z79.899 Other long term (current) drug therapy; Z98.890 Other specified postprocedural states; Z83.3 Family history of diabetes mellitus; Z80.9 Family history of malignant neoplasm, unspecified; Z83.79 Family history of other diseases of the digestive system; Z82.49 Family history of ischemic heart disease and other diseases of the circulatory system; Z84.1 Family history of disorders of kidney and ureter

== ENCOUNTER 2017-06-30 01:52 | Emergency (ER) | payer OTHER ==
[~2017-06-30] VITALS: Ht 193 cm; Wt 209.1 kg
[~2017-06-30 01:52] MED LIST changes: -ACET-1256 PO; +BUPR100T8 PO; -CYM60 PO; -ERGO500011 PO; -FLX/5 PO; +LEVO-366 PO; +VNTHFA/IN INH
[2017-06-30 02:01] VITALS: TEMP 37; Ht 193 cm; Wt 209.1 kg
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
[2017-06-30 02:52] LABS: BASO % 0.3 %; BASO ABS # 0.02 K/uL (0-0.2); COMPLETE YES; EOS % 4.5 %; HEMATOCRIT 39.4 % (42-52); IG% 0.1 %; LYMPH % 24.1 %; LYMPH ABS # 1.92 K/uL (1.2-3.4); MEAN CELL VOLUME 78.8 fL (80-100); MEAN CORPUSCULAR HEMOGLOBIN 26.2 pg (25-34); MEAN CORPUSCULAR HGB CONC 33.2 g/dl (32-36); MEAN PLATELET VOLUME 9.2 fL (7.4-10.4); MONO % 6.4 %; NEUT % 64.6 %; PLATELET COUNT 216 K/uL (130-400); WHITE BLOOD COUNT 7.98 K/uL (4.8-10.8)
[2017-06-30 03:16] LABS: BLOOD UREA NITROGEN 17 mg/dl (7-18); BUN/CREATININE RATIO 12.5 (10-20); CALCIUM 8.2 mg/dl (8.5-10.1); CARBON DIOXIDE 27 mmol/L (21-32); CHLORIDE 102 mmol/L (98-107); GLUCOSE 166 mg/dl (70-99); POTASSIUM 3.6 mmol/L (3.5-5.1); SODIUM 136 mmol/L (136-145)
[2017-06-30] MEDS ORDERED: ALBUT/IPRATROP 3MG/0.5MG NEB 3 ML VIAL INH STA (03:24)
[2017-06-30] MEDS ORDERED: KETOROLAC TROMETHAMINE 30 MG/ML VIAL IV STA (03:24)
[2017-06-30] MEDS ORDERED: LEVO1TAB33 PO (03:26)
[2017-06-30] MEDS ORDERED: VNTHFA/IN INH (03:27)
[2017-06-30] MEDS ORDERED: BENZONATATE 100MG CAP PO ONE (03:30)
[2017-06-30] MEDS ORDERED: BENZ100C84 PO (04:33)
[2017-06-30 04:57] VITALS: BP 113/68; PULSE 68; O2SAT 96
--- NOTE | 2017-06-30 08:09 | DIAGNOSTIC IMAGING REPORT ---
CHEST 2 VIEWS ROUTINE HISTORY: Cough. Short of breath. COMPARISON: Chest 06/25/2017. FINDINGS: The lungs are clear. Cardiac silhouette is top normal in size. No pleural effusions. No pneumothorax. IMPRESSION: No acute process. Electronically signed by: Raimundo Anton M.D. 06/30/2017 8:08 AM Dictated Date/Time: 06/30/2017 8:07 AM
== END 2017-06-30 04:58 | disposition home or self-care (01) ==
LOC: C.EDB 01:53
DX: J20.9 Acute bronchitis, unspecified (principal); G62.9 Polyneuropathy, unspecified; Z83.3 Family history of diabetes mellitus; Z83.49 Family history of other endocrine, nutritional and metabolic diseases; Z80.9 Family history of malignant neoplasm, unspecified; Z83.79 Family history of other diseases of the digestive system; Z82.49 Family history of ischemic heart disease and other diseases of the circulatory system; Z84.1 Family history of disorders of kidney and ureter

== ENCOUNTER 2017-10-05 20:29 | Emergency (ER) | payer OTHER ==
[~2017-10-05] VITALS: Ht 188 cm; Wt 210.0 kg
[~2017-10-05 20:29] MED LIST changes: +BENZ100C84 PO; +GABA-1219 PO; -GABA1CAP4 PO; -LEVO-366 PO; +LEVO1TAB33 PO
[2017-10-05 20:37] VITALS: TEMP 37.4; Ht 188 cm; Wt 210.0 kg
[2017-10-05] MEDS ORDERED: METH10TA4 PO ×2 (21:14)
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
--- NOTE | 2017-10-05 21:57 | DIAGNOSTIC IMAGING REPORT ---
R PELVIS/UNILATERAL HIP 2-3VIEWS CLINICAL HISTORY: 42 years-old Male presenting with rt hip pain. TECHNIQUE: Single frontal view of the pelvis and frontal and frog-leg lateral views of the right hip were obtained. COMPARISON: Correlation made to CT of abdomen and pelvis from 02/10/2017. FINDINGS: Sacroiliac joints, pubic symphysis, and hip joints congruent. No advanced degenerative change. Bony pelvis intact. Femoral necks intact. Lower lumbar spine within normal limits. Evaluation degraded by body habitus. IMPRESSION: No acute osseous injury of the pelvis or right hip. Electronically signed by: Peter Jones M.D. 10/05/2017 9:55 PM Dictated Date/Time: 10/05/2017 9:53 PM
[2017-10-05 22:37] VITALS: BP 108/80; PULSE 102; O2SAT 95
== END 2017-10-05 22:37 | disposition home or self-care (01) ==
LOC: C.EDB 20:30 → C.EDC 22:37
DX: R10.31 Right lower quadrant pain (principal); Z98.890 Other specified postprocedural states; Z87.891 Personal history of nicotine dependence; Z83.3 Family history of diabetes mellitus; Z83.2 Family history of diseases of the blood and blood-forming organs and certain disorders involving the immune mechanism; Z83.79 Family history of other diseases of the digestive system; Z82.49 Family history of ischemic heart disease and other diseases of the circulatory system; Z83.6 Family history of other diseases of the respiratory system; Z84.1 Family history of disorders of kidney and ureter

== ENCOUNTER 2017-11-15 04:03 | Emergency (ER) | payer OTHER ==
[~2017-11-15] VITALS: Ht 193 cm; Wt 213.0 kg
[~2017-11-15 04:03] MED LIST changes: -BENZ100C84 PO; -LEVO1TAB33 PO; +METH10TA4 PO; -METH20TA66 PO; -VNTHFA/IN INH
[2017-11-15 04:07] VITALS: TEMP 36.7; Ht 193 cm; Wt 213.0 kg
[2017-11-15] MEDS ORDERED: NRN600 PO (04:49)
[2017-11-15 05:07] LABS: BASO % 0.3 %; BASO ABS # 0.02 K/uL (0-0.2); EOS % 4.3 %; EOS ABS # 0.31 K/uL (0-0.5); HEMATOCRIT 36.5 % (42-52); HEMOGLOBIN 12.5 g/dL (14.0-18.0); IG# 0.01 K/uL (0.00-0.02); LYMPH % 25.3 %; LYMPH ABS # 1.82 K/uL (1.2-3.4); MEAN CORPUSCULAR HGB CONC 34.2 g/dl (32-36); MEAN PLATELET VOLUME 8.7 fL (7.4-10.4); MONO % 9.3 %; MONO ABS # 0.67 K/uL (0.11-0.59); NEUT % 60.7 %; NEUT ABS # 4.37 K/uL (1.4-6.5); PLATELET COUNT 193 K/uL (130-400); RED CELL DISTRIBUTION WIDTH CV 14.4 % (11.5-14.5); RED CELL DISTRIBUTION WIDTH SD 40.2 fL (36.4-46.3)
[2017-11-15 05:26] LABS: CALCIUM 8.9 mg/dl (8.5-10.1); CREATININE 1.24 mg/dl (0.60-1.40); POTASSIUM 3.7 mmol/L (3.5-5.1)
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
[2017-11-15] MEDS ORDERED: CEPH500C2 PO (06:02)
--- NOTE | 2017-11-15 06:02 | EMERGENCY ROOM VISIT NOTE ---
ED Visit Note First contact with patient: 04:09 I saw this patient in conjunction with Nasra Rick PA-C. I agree with her decision making and treatment plan.
[2017-11-15] MEDS ORDERED: CEPHALEXIN 500MG HOME PACK 1 EA BTL PO ONE (06:15)
[2017-11-15 06:27] VITALS: BP 138/79; PULSE 97; O2SAT 98
== END 2017-11-15 06:27 | disposition home or self-care (01) ==
LOC: C.EDB 04:05
DX: L03.115 Cellulitis of right lower limb (principal); Z89.511 Acquired absence of right leg below knee; Z79.899 Other long term (current) drug therapy

== ENCOUNTER 2019-12-06 19:14 | Observation (INO) ==
[2019-12-06] MEDS ORDERED: SODIUM CHLORIDE 0.9% 1000ML 1,000 ML IV SCH (19:30)
--- NOTE | 2019-12-06 19:31 | Emergency Department Note ---
History of Present Illness General Chief complaint: Syncope Stated complaint: FALL X 2 Time Seen by Provider: 12/06/19 19:15 Source: patient and EMS Mode of arrival: EMS History of Present Illness Provider complaint: Headache Onset (ago): hour(s) Location: head Radiation: non-radiation Severity: mild Quality: + other (Pressure) Relieved By: + none Exacerbated By: + other (Humidity) Associated symptoms: + syncope; no chest pain, no cough, no fever/chills, no nausea/vomiting and no shortness of breath This is a 44-year-old male who presents with a headache after 2 possible syncopal episodes. Patient states he was fishing all day. He went to the store to get a cake for his son when he got out of the car he suddenly fell. He is not sure if he passed out at the time but he was on the ground and he is not sure how that happened. He got back in his car and went to a restaurant to get food and then when he came back he went up the stairs and fell again. This time he does not remember falling at all and feels like he definitely passed out. He had no symptoms at the time including lightheadedness, weakness, chest discom fort or pain, palpitations, fever, cough or cold symptoms, black or bloody stools, abdominal pain, vomiting or diarrhea. The patient does state that he developed a bandlike headache in the frontal region after the initial fall in the parking lot. He describes it as a pressure. It is mild in nature. He has had similar headaches in the past which have been worsened by humidity. He does state that ever since he got a prosthetic for his right leg he has had shortness of breath since last year. This has not worsened in severity recently and is stable. Currently he states he feels fine. He has no symptoms. He does not feel his heart racing although his heart rate is 117. He is sweating but he states that some of his medications make him sweaty and he sweats in general and is overweight. It is approximately 70 degrees outside. He denies any alcohol use. Home Medications Home Medications Medication Instructions Recorded Confirmed Type methylphenidate HCl 20 mg PO DIRECTED 07/09/18 12/06/19 History methylphenidate HCl 30 mg PO QAM 07/09/18 12/06/19 History temazepam 22.5 mg PO HS 07/09/18 12/06/19 History fluoxetine 20 mg PO QAM 12/06/19 12/06/19 History lorazepam 1 mg PO BID PRN 12/06/19 12/06/19 History Allergies Allergy/AdvReac Type Severity Reaction Status Date / Time ampicillin [From Unasyn] Allergy Intermediate hives Verified 12/06/19 19:37 sulbactam [From Unasyn] Allergy Intermediate hives Verified 12/06/19 19:37 Past Med/Surg History Medical History ADHD 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 and A total of 10 systems reviewed and were otherwise negative Physical Exam Vital Signs Vital Signs - 24 hr 12/06/19 19:20 12/06/19 19:27 12/06/19 19:52 Temperature 37.1 C Temperature Source Oral Pulse Rate - Lying 116 H Pulse Rate - Sitting 122 H Pulse Rate - Standing 132 H Pulse Rate 116 H Pulse Rate [Apical] Respiratory Rate 20 20 Respiratory Effort / Characteristics Non-Labored Respiratory Depth Normal Blood Pressure - Lying 141/101 H Blood Pressure - Sitting 148/91 H Blood Pressure- Standing 173/130 H Blood Pressure 123/103 H Blood Pressure [Left Arm] Blood Pressure Mean 109 Blood Pressure Mean [Left Arm] Pulse Oximetry 96 96 Oxygen Delivery Method Room Air Room Air Sepsis Recent Fever Within 48 Hours No Sepsis Action Taken by Nursing No Action Required 12/06/19 21:16 Temperature 37 C Temperature Source Oral Pulse Rate - Lying Pulse Rate - Sitting Pulse Rate - Standing Pulse Rate Pulse Rate [Apical] 100 H Respiratory Rate 18 Respiratory Effort / Characteristics Non-Labored Respiratory Depth Normal Blood Pressure - Lying Blood Pressure - Sitting Blood Pressure- Standing Blood Pressure Blood Pressure [Left Arm] 136/82 Blood Pressure Mean Blood Pressure Mean [Left Arm] 100 Pulse Oximetry 96 Oxygen Delivery Method Room Air Sepsis Recent Fever Within 48 Hours Sepsis Action Taken by Nursing Constitutional: Vital signs reviewed. Sweating profusely from the forehead. Eyes: Pupils are equal round reactive to light. Conjunctiva are noninjected. ENT: Pharynx is clear without erythema or exudate. Mucous membranes are dry. Neck supple without meningeal signs. Respiratory: Clear to auscultation bilaterally. Breath sounds are equal bilaterally. Cardiovascular: Tachycardic. Regular rhythm. Heart rate is 117. GI: Soft, nondistended and nontender. Bowel sounds are present. Musculoskeletal: No peripheral edema. No lower extremity tenderness. Right BKA. Integumentary: No cyanosis. or jaundice. Neurological: The patient is awake and alert. No focal deficits. Psychiatric: Normal affect. Not anxious appearing. Course Administered Medications Ioversol (Optiray 320 125ml) 119 ml IV ONCE PRN PRN Reason: Interaction Checking Stop: 12/10/19 21:03 Last Admin: 12/06/19 21:05 Dose: 119 ml Documented by: [id number] Discontinued Medications Sodium Chloride (Nss 1000ml) 1,000 mls @ 999 mls/hr IV .Q1H1M PRISCILLA Stop: 12/06/19 20:30 Last Admin: 12/06/19 19:58 Dose: 999 mls/hr Documented by: [id number] Medical Decision Making Differential Diagnosis Syncope, dysrhythmia, metabolic derangement, ICH, concussion, dehydration Medical Records Attestation: I reviewed the patient's medical records. I did perform a limited focused review of portions of the patient's old chart on the electronic medical record. The patient has had no recent pertinent visits to this hospital. Home Medications Current Medication List: was personally reviewed by me Laboratory Data Attestation: I reviewed the patient's lab results. Result diagrams: 12/06/19 19:55 12/06/19 19:55 Lab Results 12/06/19 12/06/19 12/06/19 Range/Units 19:55 19:55 19:55 WBC 11.46 H (4.8-10.8) K/uL RBC 5.17 (4.7-6.1) M/uL Hgb 13.9 L (14.0-18.0) g/dL Hct 40.5 L (42-52) % MCV 78.3 L (80-100) fL MCH 26.9 (25-34) pg MCHC 34.3 (32-36) g/dL RDW Std Deviation 41.3 (36.4-46.3) fL RDW Coeff of [place] 14.6 H (11.5-14.5) % Plt Count 253 (130-400) K/uL MPV 8.8 (7.4-10.4) fL Immature Gran % (Auto) 0.2 % Neut % (Auto) 71.4 % Lymph % (Auto) 18.6 % [place] % (Auto) 7.8 % Eos % (Auto) 1.7 % Baso % (Auto) 0.3 % Immature Gran # (Auto) 0.02 (0.00-0.02) K/uL Neut # (Auto) 8.20 H (1.4-6.5) K/uL Lymph # (Auto) 2.13 (1.2-3.4) K/uL [place] # (Auto) 0.89 H (0.11-0.59) K/uL Eos # (Auto) 0.19 (0-0.5) K/uL Baso # (Auto) 0.03 (0-0.2) K/uL D-Dimer 960 H* (0-500) ug/L FEU Sodium 140 (136-145) mmol/L Potassium 3.7 (3.5-5.1) mmol/L Chloride 106 (98-107) mmol/L Carbon Dioxide 27 (21-32) mmol/L Anion Gap 7.0 (3-11) BUN 12 (7-18) mg/dl Creatinine 1.26 (0.6-1.4) mg/dl Est Cr Clr Drug Dosing 149.8 ml/min Est GFR ( Amer) 80.4 Est GFR (Non-Af Amer) 69.4 BUN/Creatinine Ratio 9.2 L (10-20) Glucose 90 (70-99) mg/dl Calcium 8.6 (8.5-10.1) mg/dl Magnesium 2.1 (1.8-2.4) mg/dl Total Bilirubin 0.9 (0.2-1) mg/dl AST 27 (15-37) U/L ALT 29 (12-78) U/L Alkaline Phosphatase 80 (45-117) U/L Troponin I < 0.015 (0-0.045) ng/ml Total Protein 8.6 H (6.4-8.2) gm/dl Albumin 3.6 (3.4-5.0) gm/dl Globulin 5.0 H (2.5-4.0) gm/dl Albumin/Globulin Ratio 0.7 L (0.9-2) TSH 2.520 (0.300-4.500) uIu/ml Urine Color Urine Appearance (Clear) Urine pH (4.5-7.5) Ur Specific [place] (1.000-1.030) Urine Protein (Negative) Urine Glucose (UA) (Negative) Urine Ketones (Negative) Urine Blood (Negative) Urine Nitrite (Negative) Urine Bilirubin (Negative) Urine Urobilinogen (Negative) Ur Leukocyte Esterase (Negative) Urine WBC (Auto) (0-5) /hpf Urine RBC (Auto) (0-4) /hpf U Hyaline Cast (Auto) (0-5) /lpf U Epithel Cells (Auto) (0-5) /lpf Urine Bacteria (Auto) (Negative) 12/06/19 Range/Units 21:25 WBC (4.8-10.8) K/uL RBC (4.7-6.1) M/uL Hgb (14.0-18.0) g/dL Hct (42-52) % MCV (80-100) fL MCH (25-34) pg MCHC (32-36) g/dL RDW Std Deviation (36.4-46.3) fL RDW Coeff of [place] (11.5-14.5) % Plt Count (130-400) K/uL MPV (7.4-10.4) fL Immature Gran % (Auto) % Neut % (Auto) % Lymph % (Auto) % [place] % (Auto) % Eos % (Auto) % Baso % (Auto) % Immature Gran # (Auto) (0.00-0.02) K/uL Neut # (Auto) (1.4-6.5) K/uL Lymph # (Auto) (1.2-3.4) K/uL [place] # (Auto) (0.11-0.59) K/uL Eos # (Auto) (0-0.5) K/uL Baso # (Auto) (0-0.2) K/uL D-Dimer (0-500) ug/L FEU Sodium (136-145) mmol/L Potassium (3.5-5.1) mmol/L Chloride (98-107) mmol/L Carbon Dioxide (21-32) mmol/L Anion Gap (3-11) BUN (7-18) mg/dl Creatinine (0.6-1.4) mg/dl Est Cr Clr Drug Dosing ml/min Est GFR ( Amer) Est GFR (Non-Af Amer) BUN/Creatinine Ratio (10-20) Glucose (70-99) mg/dl Calcium (8.5-10.1) mg/dl Magnesium (1.8-2.4) mg/dl Total Bilirubin (0.2-1) mg/dl AST (15-37) U/L ALT (12-78) U/L Alkaline Phosphatase (45-117) U/L Troponin I (0-0.045) ng/ml Total Protein (6.4-8.2) gm/dl Albumin (3.4-5.0) gm/dl Globulin (2.5-4.0) gm/dl Albumin/Globulin Ratio (0.9-2) TSH (0.300-4.500) uIu/ml Urine Color Dark Yellow Urine Appearance Clear (Clear) Urine pH 5.5 (4.5-7.5) Ur Specific [place] > 1.045 H (1.000-1.030) Urine Protein 1+ H (Negative) Urine Glucose (UA) Negative (Negative) Urine Ketones Trace H (Negative) Urine Blood 1+ H (Negative) Urine Nitrite Negative (Negative) Urine Bilirubin Negative (Negative) Urine Urobilinogen Negative (Negative) Ur Leukocyte Esterase Negative (Negative) Urine WBC (Auto) 1-5 (0-5) /hpf Urine RBC (Auto) 10-30 H (0-4) /hpf U Hyaline Cast (Auto) 5-10 H (0-5) /lpf U Epithel Cells (Auto) >30 H (0-5) /lpf Urine Bacteria (Auto) Negative (Negative) Imaging Data Radiologist's Impression: XR chest 1V portable HISTORY: Shortness of breath. COMPARISON: Chest 06/25/2017. FINDINGS: No pleural effusions. No pneumothorax. The heart remains borderline enlarged. No new focal lung consolidations to suggest pneumonia. No evidence for pulmonary edema. Prominence of interstitial markings is likely due to the patient's body habitus. This is also unchanged. IMPRESSION: No significant change compared to the prior study. No acute process. ACT 112: Negative or not required by law. Electronically signed by: Raimundo Anton M.D. 12/06/2019 7:43 PM CHEST CTA for PULMONARY ARTERIES CT DOSE: 1290.44 mGy.cm HISTORY: Shortness of breath. Elevated d-dimer. TECHNIQUE: Multiaxial CT images of the chest were performed following the intravenous administration of contrast to evaluate the pulmonary arteries. Maximal intensity projection images were also obtained. A dose lowering technique was utilized adhering to the principles of ALARA. COMPARISON STUDY: Chest CTA 08/31/2016. FINDINGS: Hepatic steatosis. Limited views of the spleen and adrenal glands appear unremarkable. No pleural or pericardial effusions. No mediastinal or hilar lymphadenopathy. The heart is normal in size. Mild left ventricular hypertrophy. Normal esophagus. Normal caliber thoracic aorta with no evidence for dissection. No filling defects within the pulmonary arteries to suggest pulmonary embolus. No suspicious lytic or blastic osseous lesions. No pneumothorax. Stable 3 mm nodule within the left upper lobe on image 221. Stable 3 mm subpleural nodule within the right lower lobe on image 190. No focal lung consolidations to suggest pneumonia. IMPRESSION: No evidence for pulmonary embolus. ACT 112: Negative or not required by law. Electronically signed by: Raimundo Anton M.D. 12/06/2019 9:28 PM ECG Data Attestation: I personally reviewed and interpreted this ECG as follows: Indication: + syncope Rate (beats per minute): 110 Rhythm: + sinus tachycardia ECG Intervals/blocks: + Normal QRS; no First degree AV block ECG ST segments: no ST elevation ECG Findings: no PVCs Blood Pressure Blood Pressure Findings: Elevated blood pressure Blood Pressure Disposition: Referred to patients primary care provider Head Trauma GCS Score: 15 MDM Narrative I did evaluate the patient as noted above. The patient is brought in by EMS. He had 2 falls within a short period of time today. The initial fall of 430 he is not sure if he passed out. The second fall at home he does believe he passed out. IV access was established. The patient was placed on a continuous site monitor. Cardiac monitoring: Indication: Syncope and tachycardia Rate and rhythm: Sinus tachycardia rate of 117 I did order and personally review the patient's 12-lead EKG as described above. He has sinus tachycardia without signs of acute ischemia. I did order and personally reviewed the images of the patient's chest x-ray as described above. His chest x-ray is unremarkable. I did order and review the patient's blood work as noted in the electronic medical record. CBC shows a mild elevation of his white count and anemia. Electrolytes are unremarkable. Troponin is negative. TSH is within normal limits. D-dimer is elevated over 900. I did discuss d-dimer with the patient. He was agreeable to a CT scan of the chest. I did order a CT of the head and CT angiogram of the chest. I did review the images myself as well as the radiology report as described above. There is no evidence of acute abnormality in the brain. There is no evidence of PE. He does have mild LVH and a stable left upper lobe and right lower lobe nodule. I did discuss the test results with the patient. The patient remains somewhat tachycardic here. His heart rate is now down to 103. He is no longer diaphoretic. He has no complaints at this time. I did recommend hospitalization for further evaluation and continued monitoring. He was agreeable. The hospitalist and the vocational case manager were informed. Impression & Plan Syncope, Fall, Tachycardia, Head injury Discharge Plan Visit Data Chief Complaint: Syncope Stated Complaint: FALL X 2 ED Provider: Xavier Lorenzo Discharge Problem: Syncope, Fall, Tachycardia, Head injury Patient Disposition: Being Evaluated by Hospitalist Condition: Good Forms Stand Alone Forms: My [facility] Prescriptions Prescriptions: No Action methylphenidate HCl 20 mg tablet 30 mg PO QAM RF: 0 methylphenidate HCl 20 mg tablet 20 mg PO DIRECTED RF: 0 temazepam 22.5 mg capsule 22.5 mg PO HS RF: 0 lorazepam 1 mg tablet 1 mg PO BID PRN (Reason: Anxiety) RF: 0 fluoxetine 20 mg capsule 20 mg PO QAM RF: 0 Referrals Referrals: PCP,NO [Primary Care Provider] -
--- NOTE | 2019-12-06 19:45 | XRay Report ---
XR chest 1V portable HISTORY: Shortness of breath. COMPARISON: Chest 06/25/2017. FINDINGS: No pleural effusions. No pneumothorax. The heart remains borderline enlarged. No new focal lung consolidations to suggest pneumonia. No evidence for pulmonary edema. Prominence of interstitial markings is likely due to the patient's body habitus. This is also unchanged. IMPRESSION: No significant change compared to the prior study. No acute process. ACT 112: Negative or not required by law. Electronically signed by: Raimundo Anton M.D. 12/06/2019 7:43 PM
[2019-12-06 20:10] LABS: Basophils # (auto) 0.03 K/uL (0-0.2); Basophils % (auto) 0.3 %; Eosinophils # (auto) 0.19 K/uL (0-0.5); Eosinophils % (auto) 1.7 %; Hematocrit (blood only) 40.5 % (42-52); Hemoglobin 13.9 g/dL (14.0-18.0); Immature Granulocytes # (auto) 0.02 K/uL (0.00-0.02); Immature Granulocytes % (auto) 0.2 %; Lymphocytes # (auto) 2.13 K/uL (1.2-3.4); Lymphocytes % (auto) 18.6 %; Mean Corpuscular Hemoglobin 26.9 pg (25-34); Mean Corpuscular Hgb Conc 34.3 g/dL (32-36); Mean Corpuscular Volume 78.3 fL (80-100); Mean Platelet Volume 8.8 fL (7.4-10.4); Monocytes # (auto) 0.89 K/uL (0.11-0.59); Monocytes % (auto) 7.8 %; Neutrophils % (auto) 71.4 %; Platelet Count 253 K/uL (130-400); RDW Coefficient of Variation 14.6 % (11.5-14.5); RDW Standard Deviation 41.3 fL (36.4-46.3); Red Blood Count 5.17 M/uL (4.7-6.1); White Blood Count 11.46 K/uL (4.8-10.8)
[2019-12-06 20:25] LABS: D Dimer 960 ug/L FEU (0-500)
[2019-12-06 20:27] LABS: Alanine Aminotransferase 29 U/L (12-78); Albumin Level 3.6 gm/dl (3.4-5.0); Aspartate Aminotransferase 27 U/L (15-37); BUN Creatinine Ratio 9.2 (10-20); Blood Urea Nitrogen 12 mg/dl (7-18); Calcium 8.6 mg/dl (8.5-10.1); Carbon Dioxide 27 mmol/L (21-32); Chloride 106 mmol/L (98-107); Creatinine Clr Calc Pharmacy 149.8 ml/min; Est GFR (African American) 80.4; Est GFR (Non-African American) 69.4; Glucose 90 mg/dl (70-99); Magnesium 2.1 mg/dl (1.8-2.4); Potassium 3.7 mmol/L (3.5-5.1); Sodium 140 mmol/L (136-145)
--- NOTE | 2019-12-06 20:36 | CT Scan Report ---
HEAD CT NONCONTRAST CT DOSE: 884.08 mGy.cm HISTORY: syncope/fall eval for injury TECHNIQUE: Multiaxial CT images of the head were performed without the use of intravenous contrast. A utomated exposure control was utilized for this study. A dose lowering technique was utilized adheri ng to the principles of ALARA. Comparison: Head CT 02/28/2014. Findings: There is a partially visualized retention cyst within the right maxillary sinus and moderat e mucosal thickening within the left sphenoid sinus. The mastoid air cells are clear. The calvarium a nd skull base are intact. The ventricles and sulci are within normal limits. There is no mass, hemato ma, midline shift, or acute infarct. Impression: No acute intracranial abnormality. ACT 112: Negative or not required by law. Electronically signed by: Raimundo Anton M.D. 12/06/2019 8:34 PM
[2019-12-06 20:38] LABS: Albumin Globulin Ratio 0.7 (0.9-2); Alkaline Phosphatase 80 U/L (45-117); Bilirubin,Total 0.9 mg/dl (0.2-1); Total Protein 8.6 gm/dl (6.4-8.2); Troponin I < 0.015 ng/ml (0-0.045)
[2019-12-06] MEDS ORDERED: OPTIRAY 320 125ml IV PRN (21:04)
--- NOTE | 2019-12-06 21:30 | CT Scan Report ---
CHEST CTA for PULMONARY ARTERIES CT DOSE: 1290.44 mGy.cm HISTORY: Shortness of breath. Elevated d-dimer. TECHNIQUE: Multiaxial CT images of the chest were performed following the intravenous administration of contrast to evaluate the pulmonary arteries. Maximal intensity projection images were also obtaine d. A dose lowering technique was utilized adhering to the principles of ALARA. COMPARISON STUDY: Chest CTA 08/31/2016. FINDINGS: Hepatic steatosis. Limited views of the spleen and adrenal glands appear unremarkable. No p leural or pericardial effusions. No mediastinal or hilar lymphadenopathy. The heart is normal in size . Mild left ventricular hypertrophy. Normal esophagus. Normal caliber thoracic aorta with no evidence for dissection. No filling defects within the pulmonary arteries to suggest pulmonary embolus. No kilgore spicious lytic or blastic osseous lesions. No pneumothorax. Stable 3 mm nodule within the left upper lobe on image 221. Stable 3 mm subpleural nodule within the right lower lobe on image 190. No focal l sammie consolidations to suggest pneumonia. IMPRESSION: No evidence for pulmonary embolus. ACT 112: Negative or not required by law. Electronically signed by: Raimundo Anton M.D. 12/06/2019 9:28 PM
[2019-12-06 21:40] LABS: Appearance Urine Clear (Clear); Bacteria Urine Automated Negative (Negative); Bilirubin Urine Negative (Negative); Blood Urine 1+ (Negative); Color Urine Dark Yellow; Epithelial Cell Urine Auto >30 /lpf (0-5); Glucose Urine UA Negative (Negative); Ketones Urine Trace (Negative); Leukocyte Esterase Urine Negative (Negative); Nitrite Urine Negative (Negative); Protein Urine 1+ (Negative); Specific Gravity Urine > 1.045 (1.000-1.030); Urobilinogen Urine Negative (Negative); pH Urine 5.5 (4.5-7.5)
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
[2019-12-07] MEDS ORDERED: ACETAMINOPHEN 325 MG TAB PO PRN (00:46)
[2019-12-07] MEDS ORDERED: ONDANSETRON INJ 2 MG/ML 2 ML VIAL IV PRN (00:46)
[2019-12-07] MEDS ORDERED: MAGNESIUM HYDROXIDE SUSP 30 ML UDC PO PRN (00:46)
[2019-12-07] MEDS ORDERED: POLYETHYLENE (MIRALAX) 17 GM PACK PO PRN (00:46)
[2019-12-07] MEDS ORDERED: ALUMINUM/MAGNESIUM SUSP 30 ML UDC PO PRN (00:46)
[2019-12-07] MEDS ORDERED: TEMAZEPAM 7.5 MG CAPSULE PO PRN (01:36)
[2019-12-07] MEDS ORDERED: LORazepam 1 MG TAB PO PRN (01:37)
[2019-12-07] MEDS: TEMAZEPAM 7.5 MG CAPSULE PO SCH (01:51)
[2019-12-07] MEDS: LACTATED RINGER'S 1,000 ML IV SCH ×3 (01:53→16:53)
--- NOTE | 2019-12-07 04:14 | Billing Data ---
Date of Service December 07, 2019 Coding Level of Care Code 99189 OBS Care - Level 3
[2019-12-07 06:23] LABS: Basophils # (auto) 0.02 K/uL (0-0.2); Basophils % (auto) 0.2 %; Eosinophils # (auto) 0.26 K/uL (0-0.5); Eosinophils % (auto) 3.1 %; Hematocrit (blood only) 39.7 % (42-52); Hemoglobin 13.3 g/dL (14.0-18.0); Immature Granulocytes # (auto) 0.02 K/uL (0.00-0.02); Immature Granulocytes % (auto) 0.2 %; Lymphocytes # (auto) 2.35 K/uL (1.2-3.4); Mean Corpuscular Hemoglobin 26.8 pg (25-34); Mean Corpuscular Hgb Conc 33.5 g/dL (32-36); Mean Platelet Volume 8.8 fL (7.4-10.4); Monocytes # (auto) 0.96 K/uL (0.11-0.59); Monocytes % (auto) 11.5 %; Neutrophils # (auto) 4.77 K/uL (1.4-6.5); Platelet Count 221 K/uL (130-400); RDW Coefficient of Variation 15.1 % (11.5-14.5); RDW Standard Deviation 43.9 fL (36.4-46.3); Red Blood Count 4.96 M/uL (4.7-6.1); White Blood Count 8.38 K/uL (4.8-10.8)
[2019-12-07 06:37] LABS: Prothrombin Time 10.9 Seconds (9.0-12.0)
[2019-12-07 06:58] LABS: Calcium 8.2 mg/dl (8.5-10.1); Creatinine Clr Calc Pharmacy 172.8 ml/min; Est GFR (African American) 96.9; Est GFR (Non-African American) 83.6; Potassium 3.6 mmol/L (3.5-5.1)
[2019-12-07] MEDS ORDERED: FLUOXETINE HCL 20 MG CAP PO SCH (09:00)
[2019-12-07] MEDS ORDERED: ENOXAPARIN INJ 40 MG/0.4 ML SYR SQ SCH (09:00)
[2019-12-07] MEDS ORDERED: METHYLPHENIDATE HCL 10 MG TABLET PO SCH ×2 (09:00→14:00)
--- NOTE | 2019-12-07 09:35 | Electrocardiogram Report ---
Test Reason : Blood Pressure : / mmHG Vent. Rate : 110 BPM Atrial Rate : 110 BPM P-R Int : 152 ms QRS Dur : 100 ms QT Int : 340 ms P-R-T Axes : 065 053 -06 degrees QTc Int : 460 ms Sinus tachycardia Minor Nonspecific ST abnormality Otherwise normal ECG When compared with ECG of 25-JUN-2017 05:10, HR has increased by 23 bpm Otherwise no significant change Confirmed by Fadi Chester ([id number]) on 12/07/2019 9:34:50 AM Referred By: REFERRED SELF Confirmed By:Fadi Chester
[2019-12-07 15:46] VITALS: BP 177/100; TEMP 97.7; O2SAT 94
--- NOTE | 2019-12-07 16:10 | XCELERA ---
[id number]}___[id number]
[2019-12-07 18:22] VITALS: PULSE 92
[2019-12-08 06:20] LABS: Estimated Average Glucose 114 mg/dl; Hemoglobin A1C 5.6 % (4.5-5.6)
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
== END 2019-12-07 18:45 | disposition home or self-care (01) ==
LOC: ED 19:14 → 2N 19:14 → SUATTDRO 23:45 → 2N 12-07 00:23